=== PATIENT | female | born 1995 | race African-American/Black ===

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

== ENCOUNTER 2017-01-07 23:54 | Emergency (ER) | payer OTHER ==
[2017-01-07 23:58] VITALS: BP 117/70; PULSE 79; TEMP 98.8; BMI 29.9
[2017-01-08] MEDS ORDERED: PENICILLIN V POTASSIUM 250 MG TABLET PO ONE (00:10)
[2017-01-08] MEDS ORDERED: IBUPROFEN 600 MG TABLET (FP) PO ONE ×2 (00:11→00:23)
[2017-01-08] MEDS ORDERED: metroNIDAZOLE 250 MG TABLET PO ONE (00:11)
[2017-01-08] MEDS ORDERED: metroNIDAZOLE 250 MG TABLET ONE (00:23)
--- NOTE | 2017-01-08 00:25 | PDOC ---
History of Present Illness <Hilaria George - Last Filed: 01/08/17 00:24> - General History Source: Patient Exam Limitations: No Limitations - History of Present Illness Initial Comments: 01/08/17 00:28 The patient is a 21 year old female with no significant past medical history, who presents to the ED with a toothache on the right side of the mouth. Her dentist informed her she needs 2 root-canals. Patient denies any fever, chills, nausea, vomiting. Patient is otherwise healthy and has no other complaints. <Adan Bowman - Last Filed: 01/08/17 00:29> - General Chief Complaint: Toothache Stated Complaint: TOOTHACHE Time Seen by Provider: 01/08/17 00:10 Past History - Past Medical History Asthma: No Cancer: No Cardiac Disorders: No Diabetes: No HTN: No Seizures: No Thyroid Disease: No - Psycho/Social/Smoking Cessation Hx Anxiety: No Suicidal Ideation: No Smoking History: Never smoked Have you smoked in the past 12 months: No Hx Alcohol Use: No Drug/Substance Use Hx: No Substance Use Type: None Hx Substance Use Treatment: No <Hilaria George - Last Filed: 01/08/17 00:24> <Adan Bowman - Last Filed: 01/08/17 00:29> - Past Medical History Allergies/Adverse Reactions: Allergies Allergy/AdvReac Type Severity Reaction Status Date / Time No Known Allergies Allergy Verified 01/07/17 23:58 Home Medications: Ambulatory Orders Penicillin V Potassium [Pen Vee K -] 250 mg PO QID #28 tablet 01/08/17 Review of Systems - Review of Systems Able to Perform ROS?: Yes Comments:: 01/08/17 00:28 GENERAL/CONSTITUTIONAL: No fever or chills. No weakness. HEAD, EYES, EARS, NOSE AND THROAT: + toothache. No change in vision. No ear pain or discharge. No sore throat. CARDIOVASCULAR: No chest pain or shortness of breath. RESPIRATORY: No cough, wheezing, or hemoptysis. GASTROINTESTINAL: No nausea, vomiting, diarrhea or constipation. GENITOURINARY: No dysuria, frequency, or change in urination. MUSCULOSKELETAL: No joint or muscle swelling or pain. No neck or back pain. SKIN: No rash NEUROLOGIC: No headache, vertigo, loss of consciousness, or change in strength/ sensation. ENDOCRINE: No increased thirst. No abnormal weight change. HEMATOLOGIC/LYMPHATIC: No anemia, easy bleeding, or history of blood clots. ALLERGIC/IMMUNOLOGIC: No hives or skin allergy. <Adan Bowman - Last Filed: 01/08/17 00:29> *Physical Exam - Vital Signs Last Vital Signs Temp Pulse Resp BP Pulse Ox 98.8 F 79 18 117/70 98 01/07/17 23:55 01/07/17 23:55 01/07/17 23:55 01/07/17 23:55 01/07/17 23:55 <Hilaria George - Last Filed: 01/08/17 00:24> - Vital Signs Last Vital Signs Temp Pulse Resp BP Pulse Ox 98.8 F 79 18 117/70 98 01/07/17 23:55 01/07/17 23:55 01/07/17 23:55 01/07/17 23:55 01/07/17 23:55 - Physical Exam Comments: 01/08/17 00:28 GENERAL: Awake, alert, and fully oriented, in no acute distress HEAD: No signs of trauma EYES: PERRLA, EOMI, sclera anicteric, conjunctiva clear ENT: Auricles normal inspection, hearing grossly normal, nares patent, oropharynx clear without exudates. Moist mucosa NECK: Normal ROM, supple, no lymphadenopathy, JVD, or masses LUNGS: Breath sounds equal, clear to auscultation bilaterally. No wheezes, and no crackles HEART: Regular rate and rhythm, normal S1 and S2, no murmurs, rubs or gallops ABDOMEN: Soft, nontender, normoactive bowel sounds. No guarding, no rebound. No masses EXTREMITIES: Normal range of motion, no edema. No clubbing or cyanosis. No cords, erythema, or tenderness NEUROLOGICAL: Cranial nerves II through XII grossly intact. Normal speech, normal gait SKIN: Warm, Dry, normal turgor, no rashes or lesions noted. <Adan Bowman - Last Filed: 01/08/17 00:29> *DC/Admit/Observation/Transfer - Discharge Dispostion Admit: No <Hilaria George - Last Filed: 01/08/17 00:24> - Attestations Scribe Attestion: 01/08/17 00:29 Documentation prepared by Adan Bowman, acting as director medical affairs for Hilaria George MD. <Adan Bowman - Last Filed: 01/08/17 00:29> Diagnosis at time of Disposition: Tooth pain - Discharge Dispostion Disposition: HOME Condition at time of disposition: Stable - Prescriptions Prescriptions: Penicillin V Potassium [Pen Vee K -] 250 mg PO QID #28 tablet - Referrals Referrals: Toni Aguilera MD [Primary Care Provider] - - Patient Instructions Printed Discharge Instructions: DI for Dental Pain
== END 2017-01-08 00:36 | disposition home or self-care (01) ==
LOC: JER 23:54
DX: K08.89 Other specified disorders of teeth and supporting structures (principal)
CPT/HCPCS: 99282-25

== ENCOUNTER 2017-05-20 18:07 | Emergency (ER) | payer OTHER ==
[2017-05-20 18:12] VITALS: BP 125/68; PULSE 84; TEMP 98.1; BMI 30.7
[2017-05-20] MEDS ORDERED: AMOXICILLIN 500 MG CAPSULE (FP) PO ONE (18:41)
[2017-05-20] MEDS ORDERED: KETOROLAC TROMETHAMINE 60 MG/2 ML VIAL IM ONE (18:41)
--- NOTE | 2017-05-20 18:46 | PDOC ---
History of Present Illness - General Chief Complaint: Toothache Stated Complaint: SWOLLEN FACE FROM TOOTH ACHE Time Seen by Provider: 05/20/17 18:34 History Source: Patient Exam Limitations: No Limitations - History of Present Illness Initial Comments: 05/20/17 18:41 Patient here with complaints of upper right tooth pain. States 1-1/2 month ago had a partial crack to the front upper right molar, another portion cracked a few weeks later. States this morning woke up and had some swelling to her face with some severe pain. Denies fever, has had no dental evaluation. Has taken ibuprofen with minimal resolved Timing/Duration: unsure Severity: moderate Associated Symptoms: reports: headaches, malaise. denies: fever/chills Past History - Travel Traveled outside of the country in the last 30 days: No Close contact w/someone who was outside of country & ill: No - Past Medical History Allergies/Adverse Reactions: Allergies Allergy/AdvReac Type Severity Reaction Status Date / Time No Known Allergies Allergy Verified 05/20/17 18:10 Home Medications: Ambulatory Orders Amoxicillin - [Amoxicillin 500mg Capsule -] 500 mg PO TID #21 capsule 05/20/17 Naproxen [Naprosyn -] 500 mg PO TID PRN #20 tablet 05/20/17 Asthma: No Cancer: No Cardiac Disorders: No Diabetes: No HTN: No Seizures: No Thyroid Disease: No - Psycho/Social/Smoking Cessation Hx Anxiety: No Suicidal Ideation: No Smoking History: Never smoked Have you smoked in the past 12 months: No Information on smoking cessation initiated: No Hx Alcohol Use: No Drug/Substance Use Hx: No Substance Use Type: None Hx Substance Use Treatment: No Review of Systems - Review of Systems Able to Perform ROS?: Yes Is the patient limited Telugu proficient: Yes Constitutional: Yes: Symptoms Reported, See HPI, Malaise. No: Fever Respiratory: Yes: Symptoms reported All Other Systems: Reviewed and Negative *Physical Exam - Vital Signs Last Vital Signs Temp Pulse Resp BP Pulse Ox 98.1 F 84 18 125/68 100 05/20/17 18:10 05/20/17 18:10 05/20/17 18:10 05/20/17 18:10 05/20/17 18:10 - Physical Exam General Appearance: Yes: Nourished, Appropriately Dressed HEENT: positive: JAIRO, TMs Normal, Other (swelling and faint fluctuance to the right upper outer aspect of gingival surface.). negative: Normal ENT Inspection , Nasal Congestion, Rhinorrhea, Sinus Tenderness Neck: positive: Supple, Lymphadenopathy (R), Lymphadenopathy (L). negative: Tender Respiratory/Chest: positive: Lungs Clear, Normal Breath Sounds Extremity: positive: Normal Capillary Refill, Normal Inspection, Normal Range of Motion Integumentary: positive: Normal Color, Dry, Warm Neurologic: positive: counseling services manager II-XII NML intact, Fully Oriented, Alert, Normal Mood/ Affect, Normal Response, Motor Strength 02/10 Medical Decision Making - Medical Decision Making 05/20/17 18:47 Dental injury with early abscess. We'll treat with amoxicillin anti- inflammatories encourage dental evaluation Monday *DC/Admit/Observation/Transfer Diagnosis at time of Disposition: Tooth pain - Discharge Dispostion Disposition: HOME Condition at time of disposition: Stable Admit: No - Prescriptions Prescriptions: Amoxicillin - [Amoxicillin 500mg Capsule -] 500 mg PO TID #21 capsule Naproxen [Naprosyn -] 500 mg PO TID PRN #20 tablet PRN Reason: Pain - Referrals Referrals: Toni Aguilera MD [Primary Care Provider] - - Patient Instructions Printed Discharge Instructions: DI for Tooth Abscess Additional Instructions: Rest, drink lots of fluids: Teas, water, soups Saltwater gargles/ keep mouth clean and rinse after each meal May use wet teabag for pain relief to area Avoid hard chewing foods, stick to ice cream, Jell-O, yogurt etc. Tylenol or Motrin for fever and pain Complete all medication as prescribed Seek dental appointment as soon as possible for evaluation of dental injury/pain Followup with private physician in one to 2 days as needed Return to emergency department for worsened symptoms, fevers, swelling to face or worsened pain - Post Discharge Activity Work/School Note: Back to Work
[2017-05-20] MEDS ORDERED: AMOXICILLIN 250 MG CAPSULE ONE (18:51)
[2017-05-20] MEDS ORDERED: KETOROLAC TROMETHAMINE 60 MG/2 ML VIAL ONE (18:51)
== END 2017-05-20 19:04 | disposition home or self-care (01) ==
LOC: JERFT 18:07
PROC: 3E0233Z Introduction of Anti-inflammatory into Muscle, Percutaneous Approach (ICD-10-PCS; principal; 2017-05-20)
DX: K08.89 Other specified disorders of teeth and supporting structures (principal)
CPT/HCPCS: 84703; 99281-25

== ENCOUNTER 2017-07-23 00:32 | Emergency (ER) | payer OTHER ==
[2017-07-23 00:53] VITALS: BP 123/71; PULSE 86; TEMP 98.6; BMI 28.3
--- NOTE | 2017-07-23 01:26 | PDOC ---
*Physical Exam - Vital Signs Last Vital Signs Temp Pulse Resp BP Pulse Ox 98.6 F 86 20 123/71 99 07/23/17 00:52 07/23/17 00:52 07/23/17 00:52 07/23/17 00:52 07/23/17 00:52 - Physical Exam Comments: 07/23/17 01:25 The patient was examined by ALE Vinson under my direct supervision. I personally evaluated the patient. I concur with the above findings and the plan of care.
[2017-07-23 01:41] LABS: BASOPHIL 0.8 % (0-2.0); EOSINOPHIL 3.2 % (0-4.5); MCH 29.3 pg (25.7-33.7); MCHC 33.7 g/dl (32.0-36.0); MEAN CELL VOLUME 87.1 fl (80-96); MEAN PLT VOLUME 8.9 fl (7.5-11.1); NEUTROPHILS 52.8 % (42.8-82.8); PLATELET COUNT 254 K/MM3 (134-434); RDW 13.7 % (11.6-15.6); URINE APPEARANCE CLEAR; URINE BILIRUBIN NEGATIVE (NEGATIVE); URINE BLOOD 1+ (NEGATIVE); URINE COLOR YELLOW; URINE GLUCOSE (UA) NEGATIVE (NEGATIVE); URINE KETONE NEGATIVE (NEGATIVE); URINE NITRITE NEGATIVE (NEGATIVE); URINE PROTEIN NEGATIVE (NEGATIVE); WHITE BLOOD COUNT 6.7 K/mm3 (4.0-10.0)
--- NOTE | 2017-07-23 02:14 | PDOC ---
History of Present Illness - General Chief Complaint: Vaginal Bleeding Stated Complaint: CRAMPS, BLOOD CLOTS Time Seen by Provider: 07/23/17 00:37 - History of Present Illness Initial Comments: 07/23/17 02:06 CHIEF COMPLAINT: vaginal bleeding HISTORY OF PRESENT ILLNESS: 21 yo (s/p medical "sometime within the last 4 years" F with no significant PMH presents to ED with vaginal bleeding. Patient states her last LMP was 06/08 and "I wasn't supposed to have another one yet, but I had some bleeding on 06/22. This week I started having some spotting and intermittent pain, and today I had a little spotting early in the day, and then I had a big clot that came out. Now I'm still bleeding a little bit but I only see it when I wipe." She denies any palpitations, lightheadedness, weakness, dizziness. PAST MEDICAL HISTORY: Denies past medical history FAMILY HISTORY: Denies SOCIAL HISTORY: Denies tobacco, alcohol, illicit drug use. SURGICAL HISTORY: Denies ALLERGIES: No known drug allergies REVIEW OF SYSTEMS General/Constitutional: Denies fever or chills. Denies weakness, weight change. HEENT: Denies change in vision. Denies ear pain or discharge. Denies sore throat. Cardiovascular: Denies chest pain or shortness of breath. Respiratory: Denies cough, wheezing, or hemoptysis. Gastrointestinal: Denies nausea, vomiting, diarrhea or constipation. Denies rectal bleeding. Genitourinary: Intermittent vaginal bleeding with "shooting pain that goes straight down." Denies dysuria, frequency, or change in urination. Musculoskeletal: Denies joint or muscle swelling or pain. Denies neck or back pain. Skin and breasts: Denies rash or easy bruising. Neurologic: Denies headache, vertigo, loss of consciousness, or loss of sensation. PHYSICAL EXAM General Appearance: Well-appearing, appropriately dressed. No apparent distress. HEENT: EOMI, PERRLA, normal ENT inspection, normal voice, TMs normal, pharynx normal. No conjunctival pallor. No photophobia, scleral icterus. Neck: Supple. Trachea midline. No tenderness, rigidity, carotid bruit, stridor , lymphadenopathy, or thyromegaly. Respiratory/Chest: Lungs CTAB. No shortness of breath, chest tenderness, respiratory distress, accessory muscle use. No crackles, rales, rhonchi, stridor , wheezing, dullness Cardiovascular: RRR. S1, S2. No JVD, murmur, bradycardia, tachycardia. Vascular Pulses: Dorsalis-Pedis (R): 2+, Dorsalis-Pedis (L): 2+ Gastrointestinal/Abdominal: Normal bowel sounds. Abdomen soft, non-distended. No tenderness or rebound tenderness. No organomegaly, pulsatile mass, guarding , hernia, hepatomegaly, splenomegaly. Pelvic: External genitalia normal without lesions. Vaginal vault with moderate amount of bloody discharge. No clots appreciated. Cervix is long and closed. No cervical motion tenderness. Uterus is nontender and normal in size. Adnexa are nontender and without masses. Musculoskeletal/Extremities: Normal inspection. FROM of all extremities, normal capillary refill. Pelvis Stable. No CVA tenderness. No tenderness to extremities, pedal edema, swelling, erythema or deformity. Integumentary: Appropriate color, dry, warm. No cyanosis, erythema, jaundice or rash Neurologic: commercial litigation paralegal II-XII intact. Fully oriented, alert. Appropriate mood/affect. Motor strength 5/5. No appreciable EOM palsy, facial droop or sensory deficit. Past History - Past Medical History Allergies/Adverse Reactions: Allergies Allergy/AdvReac Type Severity Reaction Status Date / Time No Known Allergies Allergy Verified 07/23/17 00:52 Home Medications: Ambulatory Orders Amoxicillin - [Amoxicillin 500mg Capsule -] 500 mg PO TID #21 capsule 05/20/17 Naproxen [Naprosyn -] 500 mg PO TID PRN #20 tablet 05/20/17 Asthma: No Cancer: No Cardiac Disorders: No Diabetes: No HTN: No Seizures: No Thyroid Disease: No - Suicide/Smoking/Psychosocial Hx Smoking History: Never smoked Have you smoked in the past 12 months: No Information on smoking cessation initiated: No Hx Alcohol Use: No Drug/Substance Use Hx: No Substance Use Type: None Hx Substance Use Treatment: No *Physical Exam - Vital Signs Last Vital Signs Temp Pulse Resp BP Pulse Ox 98.6 F 86 20 123/71 99 07/23/17 00:52 07/23/17 00:52 07/23/17 00:52 07/23/17 00:52 07/23/17 00:52 ED Treatment Course - LABORATORY CBC & Chemistry Diagram: 07/23/17 01:29 - ADDITIONAL ORDERS Additional order review: Laboratory Results 07/23/17 01:29 Urine Color Yellow Urine Appearance Clear Urine pH 6.0 D Urine Protein Negative Urine Glucose (UA) Negative Urine Ketones Negative Urine Blood 1+ H Urine Nitrite Negative Urine Bilirubin Negative Urine Urobilinogen 2.0 H Urine HCG, Qual Negative 07/23/17 01:29 RBC 4.18 MCV 87.1 MCHC 33.7 RDW 13.7 MPV 8.9 Neutrophils % 52.8 Lymphocytes % 33.4 D Monocytes % 9.8 Eosinophils % 3.2 Basophils % 0.8 - RADIOLOGY Radiology Studies Ordered: Category Date Time Status TRANSVAGINAL ULTRASOUND US [US] Stat Ultrasound 07/23/17 01:22 Taken Medical Decision Making - Medical Decision Making 07/23/17 02:14 21 yo (s/p medical "sometime within the last 4 years" F with no significant PMH presents to ED with vaginal bleeding. -CBC, UA, UCx, Upreg Ultraound negative. *DC/Admit/Observation/Transfer Diagnosis at time of Disposition: Vaginal bleeding between periods - Discharge Dispostion Disposition: HOME Condition at time of disposition: Stable Admit: No - Referrals Referrals: Vlad Simmons MD [Staff Physician] - - Patient Instructions Printed Discharge Instructions: DI for Vaginal Bleeding Additional Instructions: Please follow up with your OBGYN for further evaluation of your vaginal bleeding. If you develop any severe bleeding (more than one soaked pad an hour) , or feel dizzy, lightheaded, weak, or have palpitations, please return to the ER.
[2017-07-23 02:30] LABS: URINE MUCUS FEW; URINE RBC 23 /hpf (0-3)
[2017-07-23 12:49] LABS: URINE LEUK ESTERASE Negative (NEGATIVE)
[2017-07-25 11:03] LABS: URINE WBC 1 /hpf (3-5)
== END 2017-07-23 03:13 | disposition home or self-care (01) ==
LOC: JER 00:32
DX: N92.1 Excessive and frequent menstruation with irregular cycle (principal)
CPT/HCPCS: 36415; 76830-TC; 81003; 81015; 84703; 85025; 87086; 99282-25

== ENCOUNTER 2018-10-06 23:49 | Emergency (ER) | payer OTHER ==
[2018-10-07 01:58] VITALS: BP 104/64; PULSE 91; TEMP 97.6; BMI 31.7
--- NOTE | 2018-10-07 02:10 | PDOC ---
Attending Attestation - Resident Resident Name: Aramis Saravia - ED Attending Attestation I have performed the following: I have examined & evaluated the patient, The case was reviewed & discussed with the resident, I agree w/resident's findings & plan - HPI HPI: 10/07/18 04:21 Pt is A1, now 10 weeks with pelvic cramps, but no bleeding. - Physicial Exam PE: 10/07/18 04:21 Agree with resident exam. I was present for pelvic exam; no discharge; no CMT, no os opening. No bleeding. Bediside sono shows feyus with good FH. - Medical Decision Making 10/07/18 04:22 Home with [facility] follow up. UA normal. STD culture sent. 10/07/18 04:24 O positive blood type.
--- NOTE | 2018-10-07 03:15 | PDOC ---
Attending Attestation - Resident Resident Name: Aramis Saravia - ED Attending Attestation I have performed the following: I have examined & evaluated the patient, The case was reviewed & discussed with the resident, I agree w/resident's findings & plan
[2018-10-07 03:46] LABS: URINE APPEARANCE CLEAR; URINE BILIRUBIN NEGATIVE (<2.0 mg/dL); URINE COLOR YELLOW; URINE GLUCOSE (UA) NEGATIVE (NEGATIVE); URINE KETONE NEGATIVE (NEGATIVE); URINE LEUK ESTERASE NEGATIVE (NEGATIVE); URINE NITRITE NEGATIVE (NEGATIVE); URINE PROTEIN NEGATIVE (NEGATIVE)
--- NOTE | 2018-10-07 04:15 | PDOC ---
History of Present Illness - General Chief Complaint: Back Pain Stated Complaint: ABDOMINAL AND BACK PAIN, PREG @ 10 WKS Time Seen by Provider: 10/07/18 02:10 History Source: Patient Exam Limitations: No Limitations Past History - Past Medical History Allergies/Adverse Reactions: Allergies Allergy/AdvReac Type Severity Reaction Status Date / Time No Known Allergies Allergy Verified 10/07/18 01:56 Home Medications: Ambulatory Orders NK [No Known Home Medication] 10/07/18 Asthma: No Cancer: No Cardiac Disorders: No Diabetes: No HTN: No Seizures: No Thyroid Disease: No - Suicide/Smoking/Psychosocial Hx Smoking History: Never smoked Have you smoked in the past 12 months: No Information on smoking cessation initiated: No Hx Alcohol Use: No Drug/Substance Use Hx: No Substance Use Type: None Hx Substance Use Treatment: No *Physical Exam - Vital Signs Last Vital Signs Temp Pulse Resp BP Pulse Ox 97.6 F 91 H 18 104/64 99 10/07/18 00:00 10/07/18 00:00 10/07/18 00:00 10/07/18 00:00 10/07/18 00:00 Moderate Sedation - Procedure Monitoring Vital Signs: Procedure Monitoring Vital Signs Temperature 97.6 F 10/07/18 00:00 Pulse Rate 91 H 10/07/18 00:00 Respiratory Rate 18 10/07/18 00:00 Blood Pressure 104/64 10/07/18 00:00 O2 Sat by Pulse Oximetry (%) 99 10/07/18 00:00 ED Treatment Course - ADDITIONAL ORDERS Additional order review: Laboratory Results 10/07/18 03:37 Urine Color Yellow Urine Appearance Clear Urine pH 6.0 Ur Specific [place] 1.029 Urine Protein Negative Urine Glucose (UA) Negative Urine Ketones Negative Urine Blood Negative Urine Nitrite Negative Urine Bilirubin Negative Urine Urobilinogen 2.0 H Ur Leukocyte Esterase Negative *DC/Admit/Observation/Transfer Diagnosis at time of Disposition: Lower abdominal pain - Discharge Dispostion Disposition: HOME Decision to Admit order: No - Referrals Referrals: Toni Aguilera MD [Primary Care Provider] - Vlad Simmons MD [Staff Physician] - - Patient Instructions Printed Discharge Instructions: DI for -- Discomforts and Remedies, DI for Abdominal Pain -- Early Additional Instructions: you were seen in the emergency department for the evaluation of your lower abdominal pain. your urine did not show an infection. please follow up with your appointment tomorrow with your OBGYN physician or with the one referred to you. please return to the emergency department if you have worsening symptoms or new concerning symptoms such as vaginal bleeding, vaginal discharge, or fevers with lower abdominal pain. thank you. - Post Discharge Activity Forms/Work/School Notes: Back to Work
[2018-10-07] MEDS ORDERED: ACETAMINOPHEN 325 MG TABLET (FP) ONE ×2 (04:19→04:20)
[2018-10-07] MEDS ORDERED: ACETAMINOPHEN 325 MG TABLET (FP) PO ONE (04:20)
[2018-10-07] MEDS ORDERED: FAMOTIDINE 20 MG/50 ML IVPB 20 MG/50 ML MG IVPB ONE (10:53)
[2018-10-07] MEDS ORDERED: ONDANSETRON 4 MG/2 ML VIAL ONE (10:53)
[2018-10-07] MEDS ORDERED: MAG HYDROX/AL HYDROX/SIMETH 30 ML UNIT-DOSE CUP ONE (10:53)
== END 2018-10-07 04:24 | disposition home or self-care (01) ==
LOC: JER 23:49
PROC: BY49ZZZ Ultrasonography of First Trimester, Single Fetus (ICD-10-PCS; principal; 2018-10-06)
DX: O26.891 Other specified pregnancy related conditions, first trimester (principal); R10.2 Pelvic and perineal pain; Z3A.10 10 weeks gestation of pregnancy
CPT/HCPCS: 36415; 81003; 87086; 87491; 87591; 87661; 99282-25

== ENCOUNTER 2019-01-24 11:05 | Emergency (ER) | payer OTHER ==
[2019-01-24 11:22] VITALS: BMI 34.0
[2019-01-24] MEDS ORDERED: SODIUM CHLORIDE 1,000 ML IV STA (11:35)
--- NOTE | 2019-01-24 11:38 | PDOC ---
History of Present Illness - General Chief Complaint: Lightheaded Stated Complaint: DIZZINESS Time Seen by Provider: 01/24/19 11:25 History Source: Patient Exam Limitations: No Limitations - History of Present Illness Initial Comments: 01/24/19 11:37 23 y/o female , who is 26 weeks along in this presents to the ED with dizziness. Patient [place] all of the sudden she started to get very hot and felt weak. She was walking over to her mother when she felt like she was going to pass out. she denies having any chest pains, trouble or any palpitations at that time. She states that she did eat breakfast this morning however did not drink a lot of fluids (only ellen about 1/2 water bottle) She has also been having a headache since last night- rates the pain like a 2-3/10, non radiating. Her thus far has been uncomplicated- she last saw her OBGYN 3 days ago and everything was normal. She denies any recent illnesses, travel or sick contacts, The only medication she has been taking are her vitamins with no changes. She endorses that she has been feeling very tired lately and has also been having bad back pain which has been pretty constant throughout her whole . . She denies any chest pains, shortness of breath, nausea/vomiting fevers or chills . 01/24/19 11:40 01/24/19 11:54 Timing/Duration: 1 hour Associated Symptoms: reports: diaphoresis, headaches, weakness. denies: chest pain Past History - Travel Traveled outside of the country in the last 30 days: No Close contact w/someone who was outside of country & ill: No - Past Medical History Allergies/Adverse Reactions: Allergies Allergy/AdvReac Type Severity Reaction Status Date / Time No Known Allergies Allergy Verified 10/07/18 01:56 Home Medications: Ambulatory Orders Prenat 115/Iron Fum/Folic/Dss [ 19 Tablet] 1 each PO DAILY 01/24/19 Asthma: No Cancer: No Cardiac Disorders: No COPD: No Diabetes: No HTN: No Seizures: No Thyroid Disease: No - Family Disease History Family Disease History: Diabetes: Father, Mother, Heart Disease: Father - Reproductive History Is Patient Now?: Yes (26 weeks along) (#): 3 Para: 2 Therapeutic (s) & number: Yes Spontaneous : 1 - Immunization History Immunization Up to Date: Yes - Suicide/Smoking/Psychosocial Hx Smoking History: Smoker current status UNK Have you smoked in the past 12 months: No Information on smoking cessation initiated: Yes Hx Alcohol Use: No Drug/Substance Use Hx: No Substance Use Type: None Hx Substance Use Treatment: No Review of Systems - Review of Systems Able to Perform ROS?: Yes Is the patient limited Arabic proficient: No Constitutional: Yes: Diaphoresis, Weakness HEENTM: No: Blurred Vision Respiratory: No: Cough, Shortness of Breath Cardiac (ROS): No: Chest Pain, Palpitations : No: Burning, Dysuria Musculoskeletal: Yes: Back Pain Neurological: Yes: Headache, Weakness *Physical Exam - Vital Signs Last Vital Signs Temp Pulse Resp BP Pulse Ox 98.5 F 83 19 107/64 99 01/24/19 11:11 01/24/19 11:11 01/24/19 11:11 01/24/19 11:11 01/24/19 11:11 - Physical Exam General Appearance: Yes: Nourished Neck: positive: Normal Thyroid Respiratory/Chest: positive: Lungs Clear, Normal Breath Sounds Cardiovascular: positive: Regular Rhythm, Regular Rate, S1, S2 Gastrointestinal/Abdominal: positive: Normal Bowel Sounds, Soft, Other ( abdomen ) Musculoskeletal: negative: CVA Tenderness Integumentary: positive: Normal Color Neurologic: positive: registered nurse midwife II-XII NML intact, Fully Oriented, Motor Strength 5/5 , Responsive ED Treatment Course - LABORATORY CBC & Chemistry Diagram: 01/24/19 11:45 01/24/19 11:45 Medical Decision Making - Medical Decision Making 01/24/19 11:56 cbc/cmp/TSh EKG fluids *DC/Admit/Observation/Transfer Diagnosis at time of Disposition: Lightheadedness - Discharge Dispostion Disposition: HOME Condition at time of disposition: Improved - Referrals Referrals: Ld Aguilera MD [Primary Care Provider] - - Patient Instructions Printed Discharge Instructions: Nausea of (Alternative Therapy) Additional Instructions: You came into the ER after you felt lightheaded. We believe you were significantly dehydrated. We gave you 2 liters of IV hydration in the ER and you felt much better and then requested to be discharged home. We looked at your blood work and found no abnormalities. Please make sure to schedule a follow up appointment with your primary care doctor in the next 24 to 48 hours to make sure you are eating and drinking appropriately and that you are feeling better and being taken care of. Come back to the ER immediately if your pain worsens, you feel lightheaded, or have any other new or worsening concerns. Thank you for coming to the [facility] ER. We hope you feel better soon! Print Language: LAO - Post Discharge Activity
[2019-01-24 11:51] LABS: BASO % 0.3 % (0-2.0); EOS % 2.5 % (0-4.5); HEMATOCRIT 32.2 % (32.4-45.2); HEMOGLOBIN 11.2 GM/dL (10.7-15.3); LYMPH % 13.3 % (8-40); MCH 32.1 pg (25.7-33.7); MCHC 34.8 g/dl (32.0-36.0); MEAN CELL VOLUME 92.1 fl (80-96); MEAN PLT VOLUME 8.9 fl (7.5-11.1); MONO % 9.1 % (3.8-10.2); NEUT % 74.8 % (42.8-82.8); PLATELET COUNT 194 K/MM3 (134-434); RDW 13.9 % (11.6-15.6); WHITE BLOOD COUNT 9.4 K/mm3 (4.0-10.0)
[2019-01-24 12:26] LABS: ALBUMIN 2.6 g/dl (3.4-5.0); ALK PHOS 64 U/L (45-117); ANION GAP 5 MMOL/L (8-16); BILIRUBIN,TOTAL 0.1 mg/dL (0.2-1); BLOOD UREA NITROGEN 10 mg/dL (7-18); CALCIUM 8.4 mg/dL (8.5-10.1); CHLORIDE 105 mmol/L (98-107); CO2 27 mmol/L (21-32); CREATININE 0.8 mg/dL (0.55-1.3); GLUCOSE,RANDOM 69 mg/dL (74-106); POTASSIUM 4.2 mmol/L (3.5-5.1); SGOT/AST 20 U/L (15-37); SGPT/ALT 21 U/L (13-61); SODIUM 137 mmol/L (136-145); TOT PROT 6.4 g/dl (6.4-8.2)
--- NOTE | 2019-01-24 13:30 | PDOC ---
Documentation entered by Steffany Higgins SCRIBE, acting as scribe for Elda Posey MD. Elda Posey MD: This documentation has been prepared by the Ronaldo cuadra Adrianna, SCRIBE, under my direction and personally reviewed by me in its entirety. I confirm that the documentation accurately reflects all work, treatment, procedures, and medical decision making performed by me. Attending Attestation - Resident Resident Name: Joshua Barrera - [facility] HPI: 23 year old female A1 (currently at 26 weeks gestation), with no significant PMH, who presents to the emergency department today complaining of dizziness for one day. Patient notes she was standing on line at the courthouse earlier today when she began to feel hot and weak. Patient notes feeling diaphoretic at that time, and began to take some layers of clothes off. While walking over to her mother, patient reportsher legs gave out in weakness. She states her mother caught her, and denies LOC or head trauma Patient endorses having a small breakfast with minimal fluids earlier this morning. She does report having a 2/10 headache since last night. Patient notes seeing her OBGYN 3 days ago, and everything was normal. Patient has been taking her vitamins, and denies any issues with her so far. Patient does endorse low back pain, LE pain, and generalized fatigue, which is secondary to her and unrelated to todays episode. she did not hit her stomach, feels baby moving ,no vaginal bleeding since episode. The patient denies chest pain, shortness of breath, headache and dizziness. Denies fever, chills, nausea, vomit, diarrhea and constipation. Denies dysuria, frequency, urgency and hematuria. Allergies: NKA Past surgical history: None reported Social history: No reported PCP: Dr. Ld Aguilera OBGYN: Dr. Damien Falk 01/24/19 14:13 - Physicial Exam PE: 01/24/19 13:27 awake alert head atraumatic. lungs clear bilat heart rrr nomrg abd soft nt nd. gravid. ext wwp no edema. no calf tenderness. alert oriented x 3. moves all ext. ext atraumtic - Medical Decision Making 01/24/19 13:27 23 yo currently here with near syncopal episode. likley related to . denies cp sob. normal exam. differential dehydration anemia, electrolyte abnormality, plan bedside us ob eval well being. labs iv hydration food reassess. ekg.
--- NOTE | 2019-01-24 13:45 | PDOC ---
*Physical Exam - Vital Signs Last Vital Signs Temp Pulse Resp BP Pulse Ox 98.5 F 83 19 107/64 99 01/24/19 11:11 01/24/19 11:11 01/24/19 11:11 01/24/19 11:11 01/24/19 11:11 - Physical Exam General Appearance: Yes: Nourished. No: Apparent Distress HEENT: positive: JAIRO, Normal ENT Inspection, Normal Voice Neck: positive: Supple Respiratory/Chest: positive: Lungs Clear Cardiovascular: positive: Regular Rhythm, Regular Rate, S1, S2 Vascular Pulses: Dorsalis-Pedis (R): 2+, Doralis-Pedis (L): 2+ Gastrointestinal/Abdominal: positive: Normal Bowel Sounds, Soft. negative: Tender Rectal Exam: positive: deferred Lymphatic: negative: Adenopathy Musculoskeletal: positive: Normal Inspection. negative: CVA Tenderness Extremity: positive: Normal Capillary Refill, Normal Inspection, Normal Range of Motion Integumentary: positive: Normal Color, Dry, Warm Neurologic: positive: Fully Oriented, Alert, Normal Mood/Affect, Normal Response ED Treatment Course - LABORATORY CBC & Chemistry Diagram: 01/24/19 11:45 01/24/19 11:45 - ADDITIONAL ORDERS Additional order review: Laboratory Results 01/24/19 11:45 Sodium 137 Potassium 4.2 Chloride 105 Carbon Dioxide 27 Anion Gap 5 L BUN 10 Creatinine 0.8 Creat Clearance w eGFR 90.54 Random Glucose 69 L Calcium 8.4 L Total Bilirubin 0.1 L AST 20 ALT 21 Alkaline Phosphatase 64 Total Protein 6.4 Albumin 2.6 L TSH 0.72 01/24/19 11:45 RBC 3.50 L MCV 92.1 MCHC 34.8 RDW 13.9 MPV 8.9 Neutrophils % 74.8 D Lymphocytes % 13.3 D Monocytes % 9.1 Eosinophils % 2.5 Basophils % 0.3 - Medications Given in the ED: ED Medications Discontinued Medications Generic Name Dose Route Start Last Admin Trade Name Freq PRN Reason Stop Dose Admin Sodium Chloride 1,000 mls @ 1,000 mls/hr 01/24/19 11:35 01/24/19 11:53 Normal Saline - IV 01/24/19 12:34 1,000 mls/hr ASDIR STA Administration Medical Decision Making - Medical Decision Making Patient signed out to me pending labs Patient was likely dehydrated secondary to related factors. Plan in the ER is to get labs, EKG, hydrate and PO challenge Labs unremarkable. Will hydrate more and PO challenge Patient is able to eat and drink, feels better, has no more complaints and requests discharge. Will DC patient with supportive care and follow up. *DC/Admit/Observation/Transfer Diagnosis at time of Disposition: Lightheadedness - Discharge Dispostion Disposition: HOME Condition at time of disposition: Improved Decision to Admit order: No - Referrals Referrals: Ld Aguilera MD [Primary Care Provider] - - Patient Instructions Printed Discharge Instructions: Nausea of (Alternative Therapy) Additional Instructions: You came into the ER after you felt lightheaded. We believe you were significantly dehydrated. We gave you 2 liters of IV hydration in the ER and you felt much better and then requested to be discharged home. We looked at your blood work and found no abnormalities. Please make sure to schedule a follow up appointment with your primary care doctor in the next 24 to 48 hours to make sure you are eating and drinking appropriately and that you are feeling better and being taken care of. Come back to the ER immediately if your pain worsens, you feel lightheaded, or have any other new or worsening concerns. Thank you for coming to the [facility] ER. We hope you feel better soon! Print Language: AUSTRALIAN - Post Discharge Activity
[2019-01-24] MEDS ORDERED: SODIUM CHLORIDE 0.9% 500 ML INFUS.BAG IV ONE (13:46)
[2019-01-24 16:19] VITALS: BP 111/74; PULSE 79; TEMP 98.1
== END 2019-01-24 17:35 | disposition home or self-care (01) ==
LOC: JER 11:05
PROC: 3E0337Z Introduction of Electrolytic and Water Balance Substance into Peripheral Vein, Percutaneous Approach (ICD-10-PCS; principal; 2019-01-24)
DX: O26.892 Other specified pregnancy related conditions, second trimester (principal); R55 Syncope and collapse; Z3A.26 26 weeks gestation of pregnancy
CPT/HCPCS: 36415; 80053; 84443; 85025; 99282-25; J7030

== ENCOUNTER 2019-07-23 15:04 | Emergency (ER) | payer OTHER ==
[2019-07-23 15:15] VITALS: BP 121/77; PULSE 96; TEMP 98.3; BMI 29.0
--- NOTE | 2019-07-23 15:15 | PDOC ---
Rapid Medical Evaluation Time Seen by Provider: 07/23/19 15:12 Medical Evaluation: Allergies Allergy/AdvReac Type Severity Reaction Status Date / Time No Known Allergies Allergy Verified 03/05/19 01:01 07/23/19 15:13 Pt c/o: llq tooth pain x 4 days, appt not unitl 09/02, no fever or lump noted Pt on brief exam: vss, noted decayed # 19, no abscess Pt ordered for: none Pt to proceed to the ED Discharge Disposition - Diagnosis Tooth pain - Referrals - Patient Instructions - Post Discharge Activity
--- NOTE | 2019-07-23 16:43 | PDOC ---
History of Present Illness - General Chief Complaint: Toothache Stated Complaint: TOOTHACHE Time Seen by Provider: 07/23/19 15:12 - History of Present Illness Initial Comments: 07/23/19 16:41 23-year-old female without comorbidities presents for evaluation of toothache x3 days without systemic symptoms Past History - Past Medical History Allergies/Adverse Reactions: Allergies Allergy/AdvReac Type Severity Reaction Status Date / Time No Known Allergies Allergy Verified 07/23/19 15:15 Home Medications: Ambulatory Orders Pnv No.95/Ferrous Fum/Folic AC [ Vitamin Tablet] 1 each PO DAILY Amoxicillin - [Amoxicillin 500mg Capsule -] 500 mg PO TID #21 capsule 07/23/19 Ibuprofen [Motrin -] 600 mg PO TID #30 tablet 07/23/19 Asthma: No Cancer: No Cardiac Disorders: No COPD: No Diabetes: No HTN: No Seizures: No Thyroid Disease: No - Reproductive History (#): 3 Para: 2 Therapeutic (s) & number: Yes Spontaneous : 1 - Immunization History Immunization Up to Date: Yes - Psycho Social/Smoking Cessation Hx Smoking History: Current every day smoker Have you smoked in the past 12 months: No Number of Cigarettes Smoked Daily: 5 Information on smoking cessation initiated: No Hx Alcohol Use: No Drug/Substance Use Hx: No Substance Use Type: None Hx Substance Use Treatment: No Review of Systems - Review of Systems Constitutional: No: Fever HEENTM: Yes: Dental Problems *Physical Exam - Vital Signs Last Vital Signs Temp Pulse Resp BP Pulse Ox 98.3 F 96 H 18 121/77 98 07/23/19 15:11 07/23/19 15:11 07/23/19 15:11 07/23/19 15:11 07/23/19 15:11 - Physical Exam Comments: 07/23/19 16:42 HEAD: NC/AT EYES: Conjuntiva clear Ears: Canals and TM's normal NOSE: No d/c THROAT: Moist mucous membrances, oral pharanx clear, uvula midline; there is a large cavity in the left lower molar NECK: Supple without adenopathy MS: Full ROM in all joints without edema NEUROLOGIC: No gross sensory or motor deficits, NVID SKIN: Normal color and temperature no lesions or rashes Medical Decision Making - Medical Decision Making 07/23/19 16:42 Amoxicillin Motrin follow-up with dental Discharge - Discharge Information Problems reviewed: Yes Clinical Impression/Diagnosis: Tooth pain Condition: Stable Disposition: HOME - Admission No - Additional Discharge Information Prescriptions: Amoxicillin - [Amoxicillin 500mg Capsule -] 500 mg PO TID #21 capsule Ibuprofen [Motrin -] 600 mg PO TID #30 tablet - Follow up/Referral Referrals: Ld Aguilera MD [Primary Care Provider] - Urgent Care Dental [Outside] - Patient Discharge Instructions Patient Printed Discharge Instructions: DI for Tooth Decay Additional Instructions: Please take the antibiotic and Motrin as directed. Return to the emergency room for worsening symptoms. Follow-up with urgent care dental in 1 to 2 days for further evaluation and treatment options. You do not need an appointment and you should follow-up with the dentist without fail. - Post Discharge Activity
== END 2019-07-23 16:48 | disposition home or self-care (01) ==
LOC: JERFT 15:04
DX: K08.89 Other specified disorders of teeth and supporting structures (principal); F17.210 Nicotine dependence, cigarettes, uncomplicated
CPT/HCPCS: 99281-25

== ENCOUNTER 2019-10-03 21:17 | Emergency (ER) | payer OTHER ==
[2019-10-03 21:32] VITALS: BMI 29.9
[2019-10-03] MEDS ORDERED: ACETAMINOPHEN 325 MG TABLET (FP) PO ONE (22:05)
[2019-10-03] MEDS ORDERED: ACETAMINOPHEN 325 MG TABLET (FP) ONE (22:13)
--- NOTE | 2019-10-03 22:25 | PDOC ---
Attending Attestation - Resident Resident Name: Kylee Ladd - ED Attending Attestation I have performed the following: I have examined & evaluated the patient, The case was reviewed & discussed with the resident, I agree w/resident's findings & plan, Exceptions are as noted - HPI HPI: 10/10/19 19:48 See resident HPI - Physicial Exam PE: 10/10/19 19:49 Agree with exam as documented by resident - Medical Decision Making 10/10/19 19:49 23F viral syndrome, +sick contacts at home flu negative symptomatic treatment dc with pcp f/u
--- NOTE | 2019-10-03 22:53 | PDOC ---
History of Present Illness - General Chief Complaint: Cold Symptoms Stated Complaint: FLU SYMPTOMS - History of Present Illness Initial Comments: HPI: 23yo F with no reported PMH presenting wiith fever x 3 days. Patient states she has similar symptoms to her who was tested flu positive. She complains of fever, congestion, cough, and rhinorrhea. Presents today because her five month old son started having a fever today. Has had low appetite but still tolerating po intake. Denies urinary symptoms. No chest pain or shortness of breath. PCP: Dr. Aguilera ROS: Constitutional: +fever, +chills HEENT: +congestion, no dysphagia Cardiovascular: no chest pain, no palpitations Respiratory: +cough, no shortness of breath Gastrointestinal: no abdominal pain, no nausea Genitourinary: no dysuria, no hematuria Musculoskeletal: no myalgia, no arthralgia Skin: no rash, no itching Neurologic: +headache, no weakness PE: General: Awake, alert, and fully oriented, in no acute distress Head: No signs of trauma Eyes: EOMI, sclera anicteric ENT: Moist mucus membranes Neck: Normal ROM, supple Lungs: Lungs clear, Normal breath sounds Cardio: Regular rhythm, S1 and S2 present Abdomen: Soft, nontender Extremities: Normal range of motion, Distal pulses present SKIN: Warm, Dry, normal turgor Neurologic: Cranial nerves II through XII grossly intact. Normal speech ED Course/MDM: DDX including but not limited to viral syndrome, influenza, PNA, UTI Presentation consistent with viral syndrome Will test for influenza; deferred further workup given low pretest probability for infiltrate on CXR given clear lung exam; patient without urinary symptoms Tylenol given for fever Laboratory Tests 10/03/19 22:21 Influenza A (Rapid) Negative Influenza B (Rapid) Negative Negative for influenza Afebrile after tylenol Counseled good handwashing at home Tylenol/motrin sent to pharmacy To follow up with primary care physician Work note given Return precautions Stable for discharge Past History - Past Medical History Allergies/Adverse Reactions: Allergies Allergy/AdvReac Type Severity Reaction Status Date / Time No Known Allergies Allergy Verified 10/03/19 21:38 Home Medications: Ambulatory Orders Pnv No.95/Ferrous Fum/Folic AC [ Vitamin Tablet] 1 each PO DAILY Amoxicillin - [Amoxicillin 500mg Capsule -] 500 mg PO TID #21 capsule 07/23/19 Ibuprofen [Motrin -] 600 mg PO TID #30 tablet 07/23/19 Acetaminophen [Tylenol -] 1,000 mg PO Q6H PRN #60 tablet 10/03/19 Ibuprofen [Motrin -] 400 mg PO Q6H PRN #30 tablet 10/03/19 Asthma: No Cancer: No Cardiac Disorders: No COPD: No Diabetes: No HTN: No Seizures: No Thyroid Disease: No - Reproductive History (#): 3 Para: 2 Therapeutic (s) & number: Yes Spontaneous : 1 - Immunization History Immunization Up to Date: Yes - Psycho Social/Smoking Cessation Hx Smoking History: Former smoker Have you smoked in the past 12 months: Yes Number of Cigarettes Smoked Daily: 5 Information on smoking cessation initiated: No Hx Alcohol Use: No Drug/Substance Use Hx: No Substance Use Type: None Hx Substance Use Treatment: No *Physical Exam - Vital Signs Last Vital Signs Temp Pulse Resp BP Pulse Ox 102.0 F H 104 H 16 103/70 100 10/03/19 21:28 10/03/19 21:28 10/03/19 21:28 10/03/19 21:28 10/03/19 21:28 ED Treatment Course - Medications Given in the ED: ED Medications Discontinued Medications Generic Name Dose Route Start Last Admin Trade Name Freq PRN Reason Stop Dose Admin Acetaminophen 975 mg 10/03/19 22:05 10/03/19 22:19 Tylenol - PO 10/03/19 22:06 975 mg ONCE ONE Administration Discharge - Discharge Information Problems reviewed: Yes Clinical Impression/Diagnosis: Fever Qualifiers: Fever type: unspecified Qualified Code(s): R50.9 - Fever, unspecified Condition: Improved Disposition: HOME - Additional Discharge Information Prescriptions: Acetaminophen [Tylenol -] 1,000 mg PO Q6H PRN #60 tablet PRN Reason: Fever Ibuprofen [Motrin -] 400 mg PO Q6H PRN #30 tablet PRN Reason: Pain - Follow up/Referral Referrals: Ld Aguilera MD [Primary Care Provider] - - Patient Discharge Instructions Patient Printed Discharge Instructions: DI for Viral Upper Respiratory Infection -- Adult Additional Instructions: You came into the emergency department with fever and chills. Flu test today was negative for Influenza. Rest, drink lots of fluids: Teas, water, soups, Pedialyte Humidified air, steamy showers, saltwater gargles can help break up mucus Lots of handwashing and good hygiene You can take [id number] tylenol or motrin for pain. Follow the instructions on the medication bottle. Follow-up with your primary care physician to discuss this ED visit and to further evaluate your symptoms. Your workup is not complete until you do so. Call and make an appointment. Immediate medical attention is required if you have: any chest pain, palpitations, shortness of breath, severe headaches, changes in vision, episodes of fainting, focal numbness or weakness, any severe abdominal pain, any black tarry stool, or any new or concerning symptoms. If you think you are having an emergency, call for emergency medical services or present to the emergency department right away. - Post Discharge Activity Work/Back to School Note: Back to Work
[2019-10-04 00:10] VITALS: BP 106/69; PULSE 87; TEMP 98.6
== END 2019-10-04 00:21 | disposition home or self-care (01) ==
LOC: JER 21:17 → JERFT 21:17 → JER 10-04 00:21
DX: R50.9 Fever, unspecified (principal)
CPT/HCPCS: 87804; 99281-25

== ENCOUNTER 2020-06-04 13:54 | Emergency (ER) | payer OTHER ==
[2020-06-04 14:11] VITALS: BP 139/79; PULSE 110; TEMP 100.1; BMI 29.1
[2020-06-04] MEDS ORDERED: ACETAMINOPHEN 500 MG TABLET (FP) PO ONE (14:24)
[2020-06-04] MEDS ORDERED: ACETAMINOPHEN 500 MG TABLET (FP) ONE (14:26)
--- NOTE | 2020-06-04 14:46 | PDOC ---
Rapid Medical Evaluation Chief Complaint: Cold Symptoms Time Seen by Provider: 06/04/20 14:16 Medical Evaluation: Allergies Allergy/AdvReac Type Severity Reaction Status Date / Time No Known Allergies Allergy Verified 03/22/20 12:58 Vital Signs Temp Pulse Resp BP Pulse Ox 100.1 F H 110 H 18 139/79 100 06/04/20 14:03 06/04/20 14:03 06/04/20 14:03 06/04/20 14:03 06/04/20 14:03 06/04/20 14:42 HPI: COVID-19 CDC guideline data points: The patient is a 24-year-old female with no past medical history who presents to the ED with 2 to 3 days of severe body aches, chills and fever T-max of 102F yesterday. She denies any shortness of breath or chest pain. She states when she takes deep breath it causes right flank pain. She denies any dysuria or hematuria. She denies any sore throat or loss of appetite. She denies any known COVID contacts, recent travel outside the [place] within 30 days or travel within the [place] within the last 14 days. The patient took 1 Aleve yesterday which did help her body aches and pain. ROS: NEGATIVE: difficulty breathing, shortness of breath, chest pain, lightheadedness, dizziness, nausea, vomiting and diarrhea. Other 12 point ROS reviewed and negative. Positive: Body aches, chills Exam: General: Awake, Alert Oriented x3. Vital signs stable. General unwell feeling, nontoxic ENT: No rhinorrhea or nasal congestion. Moderate pharyngeal erythema with tonsillar edema, no exudates appreciated, uvula midline and without edema, no kissing tonsils Neck: FROM, no midline tenderness. Lungs: Clear to auscultation bilaterally without wheezes, rhonchi or rales. Normal excursion. Patient is able to speak in full sentences. Heart: HR: 110 Regular rhythm, S1-S2 present, no murmurs rubs or gallops. Abdomen: Non-distended. MSK/Extremities: No decrease ROM, No obvious deformities. No obvious cyanosis noted. Neuro: Normal Gait, Cranial Nerves II through XII Grossly Intact. Skin: No obvious rashes, bruising. Color Normal Appearing. Assessment/Plan: Patient is a 24-year-old female with 2 days of body aches and chills. Plan: -COVID swab sent -Strep swab sent -Tylenol 1 g given -Chest x-ray ordered -Will reassess ASSESSMENT: Denies recent travel and known Covid exposure. 06/04/20 15:52 Laboratory Tests 06/04/20 14:34 COVID-19 (PEG) Pending Group A Strep Rapid Negative The patient has been made aware that her strep test is negative. We will call her with the results of her COVID testing. She should get plenty of rest and drink plenty of fluids. She understands and agrees with this treatment plan and she is stable for discharge. Discharge Disposition - Diagnosis Counseled about COVID-19 virus infection, Generalized body aches - Discharge Dispostion Disposition: HOME Condition at time of disposition: Stable - Referrals Referrals: Toni Aguilera MD [Primary Care Provider] - Call tomorrow - Patient Instructions Printed Discharge Instructions: [facility]-Coronavirus Instructions, [facility] COVID-19 Isolation Protocol Additional Instructions: Your tested for COVID today. Be sure to follow isolation precautions. You will get a call once the test become available roughly within the next 1 to 3 days. Take Tylenol 650 mg every 6 hours as needed for fever or pain. You may take Robitussin or other [id number] cough syrup. Follow the dosing instructions on the bottle. Warm tea, honey, and salt water gargles may help your symptoms. Please take precautions and self quarantine for 2 weeks and follow-up with your primary care doctor and the Department of Health. Return to the nearest emergency department for shortness of breath, difficulty breathing, chest pain, or if you have any changes in your symptoms. - Post Discharge Activity
[2020-06-04 15:49] LABS: THROAT:GRP A STREP ANTIGEN Negative (Negative)
== END 2020-06-04 15:54 | disposition home or self-care (01) ==
LOC: JER 13:54 → JERFT 13:54
DX: Z20.828 Contact with and (suspected) exposure to other viral communicable diseases (principal)
CPT/HCPCS: 71045-TC-FY; 87070; 87880; 99284-25; U0003

== ENCOUNTER 2021-01-10 10:13 | Emergency (ER) | payer OTHER ==
[2021-01-10 11:03] VITALS: BP 104/69; PULSE 87; TEMP 98.4; BMI 35.5
[2021-01-10 11:56] LABS: BASO % 0.4 % (0-2.0); EOS % 1.6 % (0-4.5); HEMATOCRIT 35.6 % (32.4-45.2); HEMOGLOBIN 12.3 GM/dL (10.7-15.3); LYMPH % 21.6 % (8-40); MCH 30.8 pg (25.7-33.7); MCHC 34.5 g/dl (32.0-36.0); MEAN CELL VOLUME 89.4 fl (80-96); MEAN PLT VOLUME 8.9 fl (7.5-11.1); MONO % 8.4 % (3.8-10.2); PLATELET COUNT 233 K/MM3 (134-434); RBC 3.98 M/mm3 (3.60-5.2); RDW 13.4 % (11.6-15.6)
[2021-01-10 12:00] LABS: EPI CELLS 35 /uL (0-25.1); HYALINE CASTS 1 /uL (0-3.1); URINE APPEARANCE CLEAR; URINE BACTERIA 678 /uL (0-1359); URINE BILIRUBIN NEGATIVE (NEGATIVE); URINE COLOR YELLOW; URINE GLUCOSE (UA) NEGATIVE (NEGATIVE); URINE KETONE NEGATIVE (NEGATIVE); URINE LEUK ESTERASE NEGATIVE (NEGATIVE); URINE NITRITE NEGATIVE (NEGATIVE); URINE PROTEIN NEGATIVE (NEGATIVE); URINE RBC 13 /uL (0-23.9); URINE WBC 28 /uL (0-25.8)
[2021-01-10 12:17] LABS: POTASSIUM 4.3 mmol/L (3.5-5.1)
[2021-01-10 12:19] LABS: CALCIUM 9.4 mg/dL (8.5-10.1)
[2021-01-10 12:20] LABS: ALBUMIN 3.2 g/dl (3.4-5.0); BLOOD UREA NITROGEN 8.1 mg/dL (7-18)
[2021-01-10 12:22] LABS: MAGNESIUM 1.9 mg/dL (1.8-2.4)
[2021-01-10 12:23] LABS: CREATININE 0.9 mg/dL (0.55-1.3)
[2021-01-10 12:24] LABS: BILIRUBIN,TOTAL 0.3 mg/dL (0.2-1)
== END 2021-01-10 13:27 | disposition home or self-care (01) ==
LOC: JER 10:13
DX: O20.0 Threatened abortion (principal)
CPT/HCPCS: 36415; 76801-TC; 80053; 81003; 83735; 84702; 85025; 87086; 99284-25

== ENCOUNTER 2021-11-19 07:36 | Emergency (ER) | payer OTHER ==
[2021-11-19 07:49] VITALS: BMI 29.9
[2021-11-19] MEDS ORDERED: ACETAMINOPHEN 1000 MG/100 ML BAG IVPB ONE (08:05)
[2021-11-19] MEDS ORDERED: ACETAMINOPHEN INJECTION 100 ML IVPB ONE (08:49)
[2021-11-19 08:53] LABS: HCG,QUALITATIVE URINE Positive
[2021-11-19 08:54] LABS: PH,URINE 5.5 (5.0-8.0); URINE APPEARANCE CLEAR; URINE BILIRUBIN NEGATIVE (NEGATIVE); URINE COLOR YELLOW; URINE GLUCOSE (UA) NEGATIVE (NEGATIVE); URINE KETONE NEGATIVE (NEGATIVE); URINE LEUK ESTERASE NEGATIVE (NEGATIVE); URINE NITRITE NEGATIVE (NEGATIVE); URINE PROTEIN NEGATIVE (NEGATIVE); URINE UROBILINOGEN 0.2 mg/dL (0.2-1.0)
[2021-11-19 09:43] LABS: BASO % 0.2 % (0-2.0); EOS % 2.1 % (0-4.5); HEMATOCRIT 36.3 % (32.4-45.2); HEMOGLOBIN 12.3 GM/dL (10.7-15.3); LYMPH % 14.7 % (8-40); MCH 29.5 pg (25.7-33.7); MCHC 33.8 g/dl (32.0-36.0); MEAN CELL VOLUME 87.4 fl (80-96); MEAN PLT VOLUME 8.7 fl (7.5-11.1); MONO % 7.3 % (3.8-10.2); NEUT % 75.7 % (42.8-82.8); PLATELET COUNT 230 10^3/uL (134-434); RBC 4.16 M/mm3 (3.60-5.2); WHITE BLOOD COUNT 9.3 K/mm3 (4.0-10.0)
[2021-11-19 09:52] LABS: CALCIUM 8.6 mg/dL (8.5-10.1)
[2021-11-19 09:53] LABS: ALBUMIN 3.5 g/dl (3.4-5.0); BLOOD UREA NITROGEN 8.2 mg/dL (7-18)
[2021-11-19 09:56] LABS: CREATININE 0.7 mg/dL (0.55-1.3)
[2021-11-19 09:57] LABS: BILIRUBIN,TOTAL 0.3 mg/dL (0.2-1); TOT PROT 7.3 g/dl (6.4-8.2)
[2021-11-19 10:03] VITALS: BP 116/61; PULSE 71; TEMP 98
[2021-11-19] MEDS ORDERED: LIDOCAINE 5% TOPICAL PATCH TP ONE (11:33)
[2021-11-19] MEDS ORDERED: LIDOCAINE 5% TOPICAL PATCH ONE (12:17)
[2021-11-19] MEDS ORDERED: LIDOCAINE PATCH REMOVAL MC SCH (22:00)
== END 2021-11-19 12:50 | disposition home or self-care (01) ==
LOC: JER 07:36
PROC: 3E0333Z Introduction of Anti-inflammatory into Peripheral Vein, Percutaneous Approach (ICD-10-PCS; principal; 2021-11-19)
DX: R07.81 Pleurodynia (principal); R29.91 Unspecified symptoms and signs involving the musculoskeletal system; Z32.01 Encounter for pregnancy test, result positive
CPT/HCPCS: 36415; 71046-TC-FY; 76817-TC; 80053; 81003; 84702; 84703; 85025; 96374; 99285-25

== ENCOUNTER 2022-06-22 20:53 | Emergency (ER) | payer OTHER ==
[2022-06-22 21:14] VITALS: BP 117/75; PULSE 80; RESP 19; TEMP 98; BMI 40.2
[2022-06-22] MEDS ORDERED: AMOX TR/POT CLAV 875MG/125MG TABLETS (FP) PO ONE (22:13)
[2022-06-22] MEDS ORDERED: DIPHTH,PERTUSS(ACELL),TET 0.5 ML DISP.SYRIN IM ONE ×2 (22:13→22:14)
[2022-06-22] MEDS ORDERED: AMOX TR/POT CLAV 875MG/125MG TABLETS (FP) ONE (22:14)
== END 2022-06-22 22:26 | disposition home or self-care (01) ==
LOC: JER 20:53 → JERFT 20:53
PROC: 3E0234Z Introduction of Serum, Toxoid and Vaccine into Muscle, Percutaneous Approach (ICD-10-PCS; principal; 2022-06-22)
DX: S61.452A Open bite of left hand, initial encounter (principal); W50.3XXA Accidental bite by another person, initial encounter
CPT/HCPCS: 90471; 90715; 99284-25

== ENCOUNTER 2022-07-25 18:21 | Emergency (ER) | payer OTHER ==
[2022-07-25 18:38] VITALS: BP 128/90; PULSE 74; RESP 18; TEMP 98; BMI 35.5
[2022-07-25 21:14] LABS: EPI CELLS >36 /uL (0-25.1); HYALINE CASTS 1 /uL (0-3.1); PH,URINE 6.5 (5.0-8.0); URINE APPEARANCE CLOUDY; URINE BACTERIA 1121 /uL (0-1359); URINE BILIRUBIN NEGATIVE (NEGATIVE); URINE COLOR YELLOW; URINE GLUCOSE (UA) NEGATIVE (NEGATIVE); URINE KETONE NEGATIVE (NEGATIVE); URINE LEUK ESTERASE 2+ (NEGATIVE); URINE NITRITE NEGATIVE (NEGATIVE); URINE PROTEIN NEGATIVE (NEGATIVE); URINE RBC 4 /uL (0-23.9); URINE UROBILINOGEN 0.2 mg/dL (0.2-1.0); URINE WBC 67 /uL (0-25.8)
[2022-07-25 21:29] LABS: HCG,QUALITATIVE URINE Negative
== END 2022-07-25 22:48 | disposition home or self-care (01) ==
LOC: JER 18:21
DX: N30.90 Cystitis, unspecified without hematuria (principal)
CPT/HCPCS: 76830-TC; 81003; 84703; 87086; 99284-25